=== PATIENT | male | born 1975 | race Caucasian/White ===

== ENCOUNTER 2020-05-11 00:10 | Emergency (ER) | payer OTHER ==
--- NOTE | 2020-05-11 01:00 | NUR ---
PATIENT CALL [facility] TRIAGE NO RESPONSE PATIENT LEFT WITHOUT BEING SEEN BY DR. GARCIA. NO FURTHER CARE PROVIDED FOR PATIENT.
--- NOTE | 2020-05-11 01:05 | NUR ---
CALLED FOR THE SECOND TIME , NO RESPONSE
--- NOTE | 2020-05-11 01:10 | NUR ---
CALLED FOR THE THIRD TIME NO RESPONSE
== END 2020-05-11 01:00 | disposition left against medical advice (07) ==
LOC: MED 00:10
DX: R10.9 Unspecified abdominal pain (principal); Z53.21 Procedure and treatment not carried out due to patient leaving prior to being seen by health care provider